=== PATIENT | female | born 1940 | race Caucasian/White ===

== ENCOUNTER 2018-06-01 06:06 | Day surgery (SDC) | payer MEDICARE ==
[2018-05-25 12:00] VITALS: BP 138/71
[2018-05-25 12:30] LABS: INR 2.29 (0.85-1.15); PROTHROMBIN TIME 23.7 SEC (9.6-11.6)
--- NOTE | 2018-05-31 13:15 | NUR ---
ABNORMAL LABS NOTIFIED DR. GUERRA OF PT'S PT 23.7, INR 2.29. LAST DOSE COUMADIN 05/26/18. ORDERS TO REDRAW IN AM UPON ARRIVAL TO HOLDING AREA.
[~2018-06-01] VITALS: Ht 179.1 cm; Wt 74.0 kg
[2018-06-01] VITALS (14 sets, daily range): BP systolic 104–135; BP diastolic 47–72
[2018-06-01] MEDS: CEFAZOLIN SODIUM 1 GM VIAL IVP SCH ×2 (05:00→07:55)
[~2018-06-01 06:06] MED LIST: ASCO500T9 PO; ASPI-1197 PO; BIOT25008 PO; CRAN300T PO; CYAN50008 PO; DIGO250T84 PO; FENO145T37 PO; GINK60TA2 PO; MAGN400T40 PO; OMEGA 3 PO; PRAV20TA4 PO; SOTA160T PO; VITA1CAP20 PO; WARF2.5T47 PO; WARF5TAB76 PO
[2018-06-01] MEDS ORDERED: LACTATED RINGERS 1000ML 1,000 ML IV ONE (06:42)
[2018-06-01] MEDS ORDERED: LIDOCAINE PF 2% 5ML ABBOJECT ONE (07:14)
[2018-06-01] MEDS ORDERED: FENTANYL CITRATE PF 50 MCG/1 ML 2ML VIAL ONE (07:15)
[2018-06-01] MEDS ORDERED: PROPOFOL 10 MG/ML 20ML VIAL IV ONE (07:15)
[2018-06-01] MEDS ORDERED: ROCURONIUM 10MG/1ML SYR 10 MG/ML ML ONE (07:15)
[2018-06-01] MEDS ORDERED: MIDAZOLAM HCL 1 MG/ML 2ML VIAL ONE (07:15)
[2018-06-01] MEDS ORDERED: ONDANSETRON HCL 4 MG/2 ML VIAL ONE (07:15)
[2018-06-01 07:18] LABS: INR 1.11 (0.85-1.15); PARTIAL THROMBOPLASTIN TIME 27.1 SEC (26.3-35.5); PROTHROMBIN TIME 11.6 SEC (9.6-11.6)
[2018-06-01] MEDS ORDERED: LIDOCAINE HCL 2% 20ML ONE (07:20)
[2018-06-01] MEDS ORDERED: ROPIVACAINE 0.5% 5MG/ML 30ML IJ ONE (07:20)
[2018-06-01] MEDS ORDERED: DEXAMETHASONE SOD PHOSPHATE 10MG/ML 1ML VIAL ONE (07:42)
[2018-06-01] MEDS ORDERED: LOVENOX SQ (07:53)
[2018-06-01] MEDS ORDERED: DIPH50 PO (07:53)
[2018-06-01] MEDS ORDERED: PHENYLEPHRINE HCL 10 MG/ML 1ML VIAL IV ONE (08:04)
[2018-06-01] MEDS ORDERED: GLYCOPYRROLATE 1 MG/5 ML SYRINGE ONE (08:37)
[2018-06-01] MEDS ORDERED: NEOSTIGMINE 5MG/5ML SYR IV ONE (08:37)
[2018-06-01] MEDS ORDERED: KETOROLAC TROMETHAMINE 30MG/ML ONE (08:39)
== END 2018-06-01 10:40 | disposition home or self-care (01) ==
LOC: DAH 06:06
PROVIDERS: ATTEND Orthopaedic Surgery
DX: M75.101 Unspecified rotator cuff tear or rupture of right shoulder, not specified as traumatic (principal); M75.41 Impingement syndrome of right shoulder; Z79.899 Other long term (current) drug therapy; Z98.890 Other specified postprocedural states; E78.00 Pure hypercholesterolemia, unspecified; Z86.73 Personal history of transient ischemic attack (TIA), and cerebral infarction without residual deficits; Z79.01 Long term (current) use of anticoagulants
CPT/HCPCS: 29826; 29827; 36415 ×2; 85610 ×2; 85730 ×2; A4248; A4565; A4649 ×5; A6207; C1713; G0168; J0690; J1100; J1885; J2001; J2250; J2370; J2405; J2704; J2710; J2795; J3010; J3490 ×2; J7030; J7120